=== PATIENT | female | born 1955 | race Caucasian/White ===

== ENCOUNTER 2021-09-30 10:14 | Day surgery (SDC) | payer BC ==
[2021-09-27 13:57] VITALS: BMI 22.3
[2021-09-30] MEDS ORDERED: Lidocaine 1% MPF 2 ML VIAL ONE (10:29)
[2021-09-30] MEDS ORDERED: PROPOFOL 40 ML ONE (11:27)
[2021-09-30] MEDS ORDERED: Lidocaine 1% PF 5 ML VIAL ONE (11:31)
[2021-09-30] MEDS ORDERED: Fentanyl 100 MCG/2 ML VIAL ONE (11:33)
[2021-09-30] MEDS ORDERED: PROPOFOL 20 ML ONE (12:26)
== END 2021-09-30 13:08 | disposition home or self-care (01) ==
LOC: CSHSDC 10:14
PROVIDERS: ATTEND Internal Medicine Gastroenterology
PROC: 0DJD8ZZ Inspection of Lower Intestinal Tract, Via Natural or Artificial Opening Endoscopic (ICD-10-PCS; principal; 2021-09-30)
PROC: 0DB68ZZ Excision of Stomach, Via Natural or Artificial Opening Endoscopic (ICD-10-PCS; principal; 2021-09-30)
DX: Z12.11 Encounter for screening for malignant neoplasm of colon (principal); K21.00 Gastro-esophageal reflux disease with esophagitis, without bleeding; Q43.8 Other specified congenital malformations of intestine; K29.70 Gastritis, unspecified, without bleeding; F41.9 Anxiety disorder, unspecified
CPT/HCPCS: 88305; J2704; J3010

== ENCOUNTER 2022-10-05 14:53 | Outpatient (CLI) | payer MEDICARE, BC | END 2022-10-05 14:54 | disposition home or self-care (01) | LOC: CSHMAMMO 14:53 | PROVIDERS: ATTEND Family Medicine | DX: Z13.820 Encounter for screening for osteoporosis (principal); M85.89 Other specified disorders of bone density and structure, multiple sites | CPT/HCPCS: 77080 ==

== ENCOUNTER 2023-12-05 13:00 | Outpatient (CLI) | payer MEDICARE, BC | END 2023-12-05 13:01 | disposition home or self-care (01) | LOC: CSHMAMMO 13:00 | PROVIDERS: ATTEND Family Medicine | DX: Z12.31 Encounter for screening mammogram for malignant neoplasm of breast (principal) | CPT/HCPCS: 77063; 77067 ==

== ENCOUNTER 2025-03-14 15:01 | Outpatient (CLI) | payer MEDICARE, BC | END 2025-03-14 15:02 | disposition home or self-care (01) | LOC: CSHMAMMO 15:01 | PROVIDERS: ATTEND Family Medicine | DX: Z12.31 Encounter for screening mammogram for malignant neoplasm of breast (principal) | CPT/HCPCS: 77063; 77067 ==

== ENCOUNTER 2025-03-26 10:40 | Outpatient (CLI) | payer MEDICARE, BC | END 2025-03-26 10:41 | disposition home or self-care (01) | LOC: CSHRAD 10:40 | PROVIDERS: ATTEND Family Medicine | DX: M25.512 Pain in left shoulder (principal) ==